=== PATIENT | male | born 1985 | race Caucasian/White ===

== ENCOUNTER 2021-04-11 12:15 | Inpatient (IN) | payer MEDICAID, SELFPAY ==
--- NOTE | ~2021-04-11 | CT_ITS ---
EXAMINATION: CT ABDOMEN AND PELVIS WITH CONTRAST CLINICAL INFORMATION: Abdominal discomfort. COMPARISON: None TECHNIQUE: Multidetector volumetric images were obtained from the superior aspect of the liver through the pubic symphysis following administration 85 mL of Omnipaque 350 intravenous contrast. Sagittal and coronal reformatted images were obtained on the technologist's workstation. Oral contrast: No This CT examination was performed using dose optimization techniques as appropriate, variously including the following: *Automated exposure control *Adjustment of mA and/or kV according to patient size (this includes techniques or standardized protocols for targeted exams where dose is matched to indication/reason for exam; i.e. extremities or head) *Use of iterative reconstruction technique DLP: 703 mGy-cm FINDINGS: LUNG BASES: Mild subsegmental atelectasis. No focal consolidation or pleural effusion. LIVER, GALLBLADDER, AND BILIARY TREE: The liver is normal in size, shape, and attenuation. No focal hepatic lesion or biliary ductal dilatation is present. The gallbladder is distended with a few stones within the neck. There is gallbladder wall thickening and pericholecystic fat stranding. PANCREAS: Unremarkable. SPLEEN: Unremarkable. ADRENAL GLANDS: Unremarkable. KIDNEYS AND URETERS: The kidneys are normal in size, shape, and attenuation. No hydronephrosis, hydroureter, or calculi seen. No perinephric stranding. BLADDER: Underdistended limiting its evaluation. No perivesical fat stranding. GASTROINTESTINAL TRACT: The stomach and the small bowel are nondilated. There is diffuse mucosal fatty hypertrophy throughout the colon and distal ileum, including terminal ileum of uncertain etiology. No evidence of active inflammatory bowel changes. No bowel obstruction. ABDOMINAL WALL: Small fat-containing umbilical hernia. Small bilateral fat-containing inguinal hernias. LYMPH NODES: No lymphadenopathy by size criteria. VASCULAR: Unremarkable. PELVIC VISCERA: Unremarkable. OSSEOUS STRUCTURES: No acute or suspicious osseous abnormalities. S-shaped scoliotic curvature of the thoracolumbar spine. CT/CT abdomen pelvis w con IMPRESSION: Cholelithiasis with gallbladder wall thickening and pericholecystic fat stranding most consistent with acute cholecystitis in the appropriate clinical setting. Submucosal fatty hypertrophy of the colon, distal ileum and terminal ileum, raising the possibility of a chronic inflammatory bowel disease without associated wall thickening or fat stranding to suspect an acute process. No bowel obstruction. Normal appendix.
[2021-04-11 12:50] VITALS: BP 156/96; PULSE 65; RESP 20; TEMP 36.1; O2SAT 100; BMI 34.3
[2021-04-11 15:51] LABS: Basophils Percent Auto 0.2 % (0-2); Hematocrit 43.7 % (42.0-52.0); Hemoglobin 15.2 g/dl (14.0-18.0); Imm Gran Abs Auto 0.09 X10*3/uL (0.00-0.03); Imm Gran Pct Auto 0.5 % (0.0-0.4); Lymphocytes Absolute Auto 0.7 X10*3/uL (1.2-4.9); Lymphocytes Percent Auto 3.7 % (20-40); MANUAL DIFF FLAG SCAN; Mean Corpuscular HGB Conc 34.8 g/dl (31.0-36.0); Mean Corpuscular Volume 86.2 fL (80.0-98.0); Mean Platelet Volume 9.8 fL (9.4-12.4); Monocytes Absolute Auto 0.5 X10*3/uL (0.1-1.2); Monocytes Percent Auto 2.4 % (2-11); Neutrophils Absolute Auto 18.3 x10*3/uL (2.0-8.3); Neutrophils Percent Auto 93.2 % (45-73); Platelet Count 266 X10*3/uL (160-400); Red Blood Count 5.07 X10*6/uL (4.60-5.80); Red Cell Distribution Width 12.5 % (11.0-16.0); SCAN SMEAR FLAG 1; White Blood Count 19.6 X10*3/uL (4.8-10.8)
[2021-04-11 16:14] LABS: Alanine Aminotransferase 24 U/L (0-40); Albumin Level 4.8 g/dL (3.5-5.0); Alkaline Phosphatase 66 U/L (39-117); Anion Gap 15 (12-20); Aspartate Amino Transferase 13 U/L (5-37); Bilirubin Total 0.5 mg/dL (0.0-1.0); Blood Urea Nitrogen 12 mg/dL (9-16); Calcium 9.5 mg/dL (8.4-10.2); Carbon Dioxide 24 mmol/L (22-29); Chloride 104 mmol/L (96-108); Creatinine Clr Calc Pharmacy 116.2; Estimated Glomerular Filt Rate > 60; Glucose Random 134 mg/dL (60-115); Potassium 3.8 mmol/L (3.3-5.1); Sodium 139 mmol/L (135-145); Total Protein 7.7 g/dL (6.5-8.0)
--- NOTE | 2021-04-11 16:17 | ED.GENADULT ---
HPI - General Adult General Chief complaint: Abdominal Pain Stated complaint: RUQ PAIN FROM URGENT CARE Time Seen by Provider: 04/11/21 16:17 Related Data Home Medications Medication Instructions Recorded Confirmed No Known Home Meds 04/11/21 04/11/21 Allergies Allergy/AdvReac Type Severity Reaction Status Date / Time No Known Allergies Allergy Verified 04/11/21 12:55 Review of Systems Review of Systems: Constitutional : No Weight loss, No Fever, No Chills, No Night Sweats, No Fatigue, No Malaise ENT/Mouth : No Hearing loss, No Ear Pain, No Nasal Congestion, No Sinus Pain, No Hoarseness, No sore throat, No Rhinorrhea, No Swallowing Difficulty Eyes: No Eye Pain, No Swelling, No Redness, No Foreign Body, No Discharge, No Vision Changes Cardiovascular : No Chest Pain, No SOB, No Dyspnea on Exertion, No Orthopnea, No Edema, No Palpitations Respiratory : No Cough, No Sputum, No Wheezing, No Smoke Exposure, No Dyspnea Gastrointestinal : No Nausea, Vomiting, No Diarrhea, No Constipation, epigastric abdominal Pain, No Hematochezia, No Melena Genitourinary : no irregular bleeding, No Dysuria, No Urinary Frequency, No Hematuria, No Urinary Incontinence, No Urgency, No Flank Pain, No Urinary Flow Changes, No Hesitancy Musculoskeletal : No joint pain, No Myalgias, No Joint Swelling Skin : No Skin Lesions, No rash Neuro : No Weakness, No Numbness, No Paresthesias, No Loss of Consciousness, No Dizziness, No Headache Psych : No Anxiety/Panic, No Depression, No SI/HI/AH/VH, No Social Issues, Yes all other systems are reviewed and are negative [facility] Past Medical History Medical History (Updated 04/11/21 @ 19:40 by Saida Sargent [facility]) Asthma Social History Social History Advance Directives: No Advance Directives Information Provided: No Physical Exam Vital Signs: Vital Signs: Last Vital Signs Temp 98.7 F 04/11/21 20:29 Pulse 61 04/11/21 20:29 Resp 14 04/11/21 20:29 BP 130/80 04/11/21 20:29 Pulse Ox 99 04/11/21 20:29 Body Mass Index 34.3 Const: General: healthy appearing, no acute distress and well developed Nutritional Appearance: well nourished Orientation/consciousness: patient oriented x3 HENMT: Head: Yes normal to inspection, Yes normocephalic and Yes atraumatic Face and sinus: Yes normal facial exam Mouth: Normal oral and palatal mucosa present Throat: Yes posterior oropharynx normal, Yes tonsils normal and Yes uvula midline Eyes: General: appearance normal, both eyes and all related structures Neck: Neck: Yes normal visual inspection, Yes full ROM and Yes trachea midline Thyroid: Thyroid normal Resp: Effort & Inspection: normal respiratory effort, able to speak in complete sentences, no tracheal deviation and symmetric chest movement Auscultation: clear to auscultation bilaterally Cardio: Jugular venous distension: no JVD Rate: regular rate Rhythm: regular rhythm Heart sounds: S1 normal heart sound present, S2 normal heart sound present, no gallops and no murmurs GI: Inspection: Yes normal to inspection, Yes distended and Yes obesity Palpation (GI): Soft to palpation, not firm, nontender and No hepatosplenomegaly present Auscultation: normal bowel sounds : General: Yes no CVA tenderness Back/Spine/Pelvis: Back: no CVA tenderness Skin: General skin exam: elasticity normal, turgor normal and dry skin Neuro: General: patient oriented x3 Psych: Appearance: grossly normal Mental Status: mental status grossly normal Speech and movement: Normal speech and movement present Affect: normal affect Attitude: cooperative Thought process: Normal thought process present Thought content: Normal thought content present Insight: Good insight present (Psych) Judgement: Good judgement present (Psych) Course Course Course Narrative: 36-year-old male with no particular past medical history is here today for vomiting and mid to upper abdominal area discomfort. Reports that this started 2 days ago. Patient reports that he vomited right after he ate. Patient denies eating any different food. Denies traveling, denies any ill contacts. Patient reports that his diet usually consists of fast food. Patient reports that he does like to eat hamburgers and [place] fries. Denies any family history of gallbladder disease. Will order CBC, CMP, lipase, abdominal CT scan. Will medicate him with Protonix, Maalox, and lidocaine. Reevaluation(s) Reevaluation #1: Patient reports that he is feeling nauseous will medicate him with Zofran. WBCs are 19.9. No shift. Reevaluation #2: Patient continues to have mid to upper abdominal discomfort. Abdominal CT was read by radiologist of acute cholecystitis. Will admit patient to surgery will let GI specialty know that patient has colonic wall thickening suggestive of IBD disease. Patient has no symptoms of diarrhea or lower abdominal pain. Reevaluation #3: General surgery in to admit patient. Patient will be NPO and medicated with morphine for pain. Currently his pain is controlled Medical Decision Making Lab Data Result diagrams: 04/11/21 15:46 04/11/21 15:46 Labs: Lab Results 04/11/21 04/11/21 04/11/21 Range/Units 15:46 15:46 17:03 WBC 19.6 H (4.8-10.8) X10*3/uL RBC 5.07 (4.60-5.80) X10*6/uL Hgb 15.2 (14.0-18.0) g/dl Hct 43.7 (42.0-52.0) % MCV 86.2 (80.0-98.0) fL MCH 30.0 (27.0-33.0) pg MCHC 34.8 (31.0-36.0) g/dl RDW 12.5 (11.0-16.0) % Plt Count 266 (160-400) X10*3/uL MPV 9.8 (9.4-12.4) fL Immature Gran % (Auto) 0.5 H (0.0-0.4) % Neut % (Auto) 93.2 H (45-73) % Lymph % (Auto) 3.7 L (20-40) % [place] % (Auto) 2.4 (2-11) % Eos % (Auto) 0.0 (0-4) % Baso % (Auto) 0.2 (0-2) % Lymph # (Auto) 0.7 L (1.2-4.9) X10*3/uL [place] # (Auto) 0.5 (0.1-1.2) X10*3/uL Eos # (Auto) 0.0 (0.0-0.4) X10*3/uL Baso # (Auto) 0.0 (0.0-0.2) X10*3/uL Abs Immat Gran (auto) 0.09 H (0.00-0.03) X10*3/uL Absolute Neuts (auto) 18.3 H (2.0-8.3) x10*3/uL Absolute Nucleated RBC 0.000 (0.0-0.012) X10*3/uL Nucleated RBC % (auto) 0.0 (0.0-0.2) /100WBC Smear Tech's Comments VERIFIED Sodium 139 (135-145) mmol/L Potassium 3.8 (3.3-5.1) mmol/L Chloride 104 (96-108) mmol/L Carbon Dioxide 24 (22-29) mmol/L Anion Gap 15 (12-20) BUN 12 (9-16) mg/dL Creatinine 0.87 (0.5-1.4) mg/dL Estim Creat Clear Calc 116.2 Estimated GFR > 60 Random Glucose 134 H (60-115) mg/dL Calcium 9.5 (8.4-10.2) mg/dL Total Bilirubin 0.5 (0.0-1.0) mg/dL AST 13 (5-37) U/L ALT 24 (0-40) U/L Alkaline Phosphatase 66 (39-117) U/L Total Protein 7.7 (6.5-8.0) g/dL Albumin 4.8 (3.5-5.0) g/dL Lipase 14 (8-78) U/L Urine Color YELLOW Urine Appearance CLEAR Urine pH 7.0 (5.0-8.0) Ur Specific [place] 1.020 (1.005-1.025) Urine Protein 1+ H (NEG-TRACE) MG/DL Urine Glucose (UA) NEG (NEG) MG/DL Urine Ketones >=80 (NEG) MG/DL Urine Blood NEG (NEG) Urine Nitrite NEG (NEG) Ur Leukocyte Esterase NEG (NEG) Urine RBC 0-2 (0) /HPF Urine WBC 0-2 (0-4) /HPF Ur Squamous Epith Cells TRACE /LPF Amorphous Sediment TRACE /LPF Urine Bacteria NONE /LPF Urine Mucus 3+ /LPF Imaging Data CT scan - abdomen: Attestation: I personally reviewed and interpreted this imaging study as follows: Radiologist's impression: IMPRESSION: Cholelithiasis with gallbladder wall thickening and pericholecystic fat stranding most consistent with acute cholecystitis in the appropriate clinical setting. ? Submucosal fatty hypertrophy of the colon, distal ileum and terminal ileum, raising the possibility of a chronic inflammatory bowel disease without associated wall thickening or fat stranding to suspect an acute process. ? Discharge Plan Discharge Clinical Impression: Acute cholecystitis Patient Disposition: Admitted As Inpatient
[2021-04-11 16:23] LABS: SLIDE REVIEW VERIFIED
[2021-04-11] MEDS: 0.9 % Sodium Chloride 1,000 ML 999 ML IV (16:58)
[2021-04-11] MEDS: Magnesium Hydrox/Alum Hydrox 30 ML ORAL.SUSP PO (16:59)
[2021-04-11] MEDS: Pantoprazole Sodium 40 MG/10 ML VIAL IVPUSH (16:59)
[2021-04-11] MEDS: Lidocaine HCl Viscous 2 % 15 ML SOLUTION PO (17:00)
[2021-04-11] MEDS: PHENobarb/Hyoscy/Atropine/Scop 10 ML ELIXIR 5 ML PO (17:01)
[2021-04-11 17:07] LABS: Lipase 14 U/L (8-78)
[2021-04-11 17:10] LABS: Appearance Urine CLEAR; Color Urine YELLOW; Glucose Urine UA NEG (NEG); Leukocyte Esterase Urine NEG (NEG); Nitrite Urine NEG (NEG); UACC Culture Trigger NO; Urine Blood NEG (NEG); Urine Ketones >=80 MG/DL (NEG); Urine Protein 1+ MG/DL (NEG-TRACE)
[2021-04-11 17:22] LABS: Amorphous Sediment Urine TRACE /LPF; Mucus Urine 3+ /LPF; RBC Urine 0-2 /HPF (0); Squamous Epithelial Cell Urine TRACE /LPF; WBC Urine 0-2 /HPF (0-4)
[2021-04-11] MEDS: iohexoL 350 MG/ML 100 ML INFUS..BTL IV (17:24)
[2021-04-11] MEDS: ondansetron HCL 4 MG/2 ML VIAL IVPUSH (18:10)
--- NOTE | 2021-04-11 20:12 | PM.HPGS ---
History of Present Illness History of Present Illness Date of Service: 04/15/21 Chief complaint: cholecystitis Narrative: Norberto Shields is a 36 year old male who came into the emergency room tonight because of epigastric pain. He says that this started about 2 days ago although this did not appear to be severe. He said he had vomited yesterday which provided some relief. He says the pain had persisted all day today so he decided to come to the emergency room. He says that the pain was a 10/10 before came to the ER but after he had an episode of, this is now down to a 2/10. He denies previous similar episodes in the past. He states that the pain was consistently on the epigastric area. Currently, he feels much better even without getting any pain medication here in the ER. Review of Systems Constitutional: Constitutional: Denies chills and Denies fever(s) Cardiovascular: Cardiovascular: Denies chest pain, Denies dyspnea and Denies dyspnea on exertion Respiratory: Respiratory: Denies cough, Denies dyspnea and Denies dyspnea on exertion Gastrointestinal: Gastrointestinal: Denies hematochezia and Denies change in bowel habits Genitourinary: Genitourinary: Denies hematuria and Denies difficulty urinating Musculoskeletal: Musculoskeletal: Denies back pain and Denies limited range of motion Neurologic: Denies focal weakness and Denies convulsions Psychiatric: Psychiatric: Denies depression and Denies mood swings PMFSH Past Medical History Medical History (Updated 04/11/21 @ 19:40 by Saida Sargent [facility]) Asthma Social History Social History Household Members: Family Housing: Apartment Do you presently have visiting nurse or other home services: No Patient Tobacco Use Status: Never used Tobacco service: No Current occupational status: employed Meds Allergies Allergy/AdvReac Type Severity Reaction Status Date / Time No Known Allergies Allergy Verified 04/11/21 12:55 Active Medications: Current Medications Pharmacy Consult (Consult Rx Perform Med Rec) 1 each MISCELLANE ONCE PRN PRN Reason: Consult order Physical Exam Vital Signs: Vital Signs: Last Vital Signs Temp 97 F 04/11/21 12:50 Pulse 65 04/11/21 12:50 Resp 20 04/11/21 12:50 BP 156/96 H 04/11/21 12:50 Pulse Ox 100 04/11/21 12:50 Body Mass Index 34.3 Const: General: comfortable and no acute distress Orientation/consciousness: patient oriented x3 Neck: Neck: Yes no lymphadenopathy Resp: Auscultation: clear to auscultation bilaterally Cardio: Rhythm: regular rhythm GI: Other: Minimal tenderness on deep palpation on the epigastric area, no Blood sign, no guarding rebound Palpation (GI): Soft to palpation, nontender and no guarding Neuro: General: patient oriented x3 Results Results Labs: Short CBC 04/11/21 Range/Units 15:46 WBC 19.6 H (4.8-10.8) X10*3/uL Hgb 15.2 (14.0-18.0) g/dl Hct 43.7 (42.0-52.0) % Plt Count 266 (160-400) X10*3/uL BMP 04/11/21 15:46 Sodium 139 Potassium 3.8 Chloride 104 Carbon Dioxide 24 BUN 12 Creatinine 0.87 Calcium 9.5 Liver Function 04/11/21 Range/Units 15:46 Total Bilirubin 0.5 (0.0-1.0) mg/dL AST 13 (5-37) U/L ALT 24 (0-40) U/L Alkaline Phosphatase 66 (39-117) U/L Albumin 4.8 (3.5-5.0) g/dL Urine 04/11/21 Range/Units 17:03 Urine Color YELLOW Urine Appearance CLEAR Urine pH 7.0 (5.0-8.0) Ur Specific [place] 1.020 (1.005-1.025) Urine Protein 1+ H (NEG-TRACE) MG/DL Urine Glucose (UA) NEG (NEG) MG/DL Assessment and Plan (1) Acute cholecystitis: Status: Acute He came in with a 2 day history of epigastric pain. Currently, he feels much better after an episode of vomiting. He says his pain is a 2/10. He has not gotten any pain medications in the ER. I have reviewed his CAT scan. This does not actually appear to have significant inflammatory changes to me. He does have gallstones and the gallbladder appears mildly distended. He does not have Blood's sign and he does not seem to have significant tenderness on deep palpation on the right upper quadrant at this time. I did explain to him the option of cholecystectomy. I had a long discussion with him about the technique of laparoscopic cholecystectomy and possible open cholecystectomy. I reviewed the risks including but not limited to bleeding, infections, injury to the bowel and the liver as well as the bile ducts, conversion to open cholecystectomy, as well as the benefits and alternatives. The alternative is to do non operative treatment with IV antibiotics only. He says he feels much better now and is uncertain as to whether he wants to proceed with surgery. I will admit him and continue IV antibiotics and we will rediscuss with him the option of proceeding with cholecystectomy in the morning. He states he understands the plan and is agreeable. Again he states that he is currently comfortable and says he does not need pain medications at this time. Quality Stroke Does the patient have a stroke diagnosis?: No VTE Prior VTE?: No VTE Risk Level:: Medical - low VTE Device Contraindication: Treatment Not Indicated VTE Drug Contraindication: Treatment Not Indicated Procedures Date of Service Date of Service: 04/11/21
[2021-04-11] MEDS: Morphine Sulfate 4 MG/ML CARTRIDGE IVPUSH (20:16)
[2021-04-11] MEDS: Piperacillin Sodium/Tazobactam 3.375 GM in 0.9 % Sodium Chloride 50 ML IV (20:17)
[2021-04-11 20:29] VITALS: BP 130/80; PULSE 61; RESP 14; TEMP 37.1; O2SAT 99
--- NOTE | 2021-04-11 20:32 | PHA.MEDREC ---
Pharmacy Consult ? Medication Reconciliation Pharmacy has completed the medication reconciliation.
[2021-04-11] MEDS: 0.9 % Sodium Chloride 1,000 ML 100 ML IVCONT (21:14)
[2021-04-11 21:50] VITALS: BP 142/76; PULSE 56; RESP 16; O2SAT 99
[2021-04-12] VITALS (15 sets, daily range): BP systolic 125–159; BP diastolic 71–95; PULSE 61–86; RESP 16–18; TEMP 36.4–37.3; O2SAT 94–100
--- NOTE | 2021-04-12 05:56 | PC.NURSE ---
Pt alert and oriented x4, calm and cooperative. Pt denies pain, denies N/V/D. Pt OOB ambulating to bathroom without issues, independent on feet and noted to be steady. Pt voided multiple times throughout shift leader. IV intact infusing IV fluids and tolerating well. Remains NPO. Vitals stable. Pt aware of being admitted, transported to floor by Tech. Report given to Tyler.
[2021-04-12] MEDS: 0.9 % Sodium Chloride 1,000 ML 100 ML IVCONT ×2 (06:29→17:39)
[2021-04-12] MEDS: Omeprazole 20 MG CAPSULE.DR PO ×2 (06:29→16:50)
[2021-04-12 06:59] LABS: COVID-19 Test Negative (Negative)
[2021-04-12 07:44] LABS: Hematocrit 41.8 % (42.0-52.0); Hemoglobin 14.1 g/dl (14.0-18.0); Mean Corpuscular HGB Conc 33.7 g/dl (31.0-36.0); Mean Corpuscular Hemoglobin 29.4 pg (27.0-33.0); Mean Corpuscular Volume 87.1 fL (80.0-98.0); Platelet Count 249 X10*3/uL (160-400); Red Cell Distribution Width 12.8 % (11.0-16.0); White Blood Count 14.7 X10*3/uL (4.8-10.8)
[2021-04-12 07:54] LABS: Alanine Aminotransferase 18 U/L (0-40); Albumin Level 4.1 g/dL (3.5-5.0); Alkaline Phosphatase 58 U/L (39-117); Aspartate Amino Transferase 10 U/L (5-37); Bilirubin Direct 0.4 mg/dL (0.0-0.5); Total Protein 6.4 g/dL (6.5-8.0)
--- NOTE | 2021-04-12 12:09 | PM.EVENT ---
Event Note Date of Service: 04/12/21 Event Note: CT scan with Dr. Celis - subtle changes suggestive of early/mild acute cholecystitis Patient feels much better but says that he does not want to have another episode He says he would like to proceed with laparoscopic cholecystectomy He understands the technique ofthe procedure as well as the risks, benefits, and alternatives His mother was involved with the discussion
--- NOTE | 2021-04-12 13:23 | HO.ANESPROP2 ---
HPI - Anesthesia Eval Consult details Narrative: Acute Cholecyctitis PMFSH Active Problems Active Problems: All Active Problems (Updated 04/11/21 @ 19:40 by MARIANNE Mendoza) Acute cholecystitis (Acute) Past Medical History Medical History (Updated 04/11/21 @ 19:40 by MARIANNE Mendoza) Asthma Family History Family history of problems with anesthesia: No Surgical History History of Problems with Anesthesia: No Social History Social History Household Members: Family Housing: Apartment Do you presently have visiting nurse or other home services: No Patient Tobacco Use Status: Never used Tobacco Use of substances other than those prescribed or required for medical reasons: No Have you been hit, kicked, punched, or otherwise hurt by someone within the past year? If so, by whom?: No Do you feel safe in your current relationship?: No Is there a partner from a previous relationship who is making you feel unsafe now?: No Are you made to feel afraid or neglected: No Advance Directives: No Advance Directives Information Provided: No Do you have thoughts of harming others: None Do you have a plan to hurt others: No Plan Meds Allergies Allergy/AdvReac Type Severity Reaction Status Date / Time No Known Allergies Allergy Verified 04/11/21 12:55 Active Medications: Current Medications Sodium Chloride (Ns) 1,000 mls @ 100 mls/hr IVCONT .Q10H [facility] Last Admin: 04/12/21 06:29 Dose: 100 mls/hr Documented by: Morphine Sulfate (Morphine Sulfate 4 Mg/Ml Cartridge) 3 mg IVPUSH Q3H PRN; Protocol PRN Reason: pain, severe Omeprazole (Omeprazole 20 Mg Capsule.Dr) 20 mg PO BID@0630,1630 [facility] Last Admin: 04/12/21 06:29 Dose: 20 mg Documented by: Ondansetron HCl (Ondansetron Hcl 4 Mg/2 Ml Vial) 4 mg IVPUSH Q8H PRN PRN Reason: Nausea and Vomiting Oxycodone HCl (Oxycodone Hcl Immed Release 5 Mg Tablet) 10 mg PO Q4H PRN PRN Reason: pain, moderate Pharmacy Consult (Consult Rx Perform Med Rec) 1 each MISCELLANE ONCE PRN PRN Reason: Consult order Sodium Chloride (0.9 % Sodium Chloride Flush 3 Ml Syringe) 3 ml IVFLUSH QSHIFT [facility] Last Admin: 04/12/21 07:50 Dose: Not Given Documented by: Home Medications Medication Instructions Recorded Confirmed Last Taken Type No Known Home Meds 04/11/21 04/11/21 Unknown History Exam Exam Date and Time: April 12, 2021 1323 Height,Weight and Vital Signs: Height 5 ft 3 in Weight 87.997 kg Last Vital Signs Temp 98 F 04/12/21 12:41 Pulse 76 04/12/21 12:41 Resp 18 04/12/21 12:41 BP 125/82 04/12/21 12:41 Pulse Ox 97 04/12/21 12:41 Pertinent Lab Results Pertinent Lab Results: Laboratory Tests 04/11/21 04/11/21 04/11/21 15:46 15:46 17:03 WBC 19.6 H RBC 5.07 Hgb 15.2 Hct 43.7 MCV 86.2 MCH 30.0 MCHC 34.8 RDW 12.5 Plt Count 266 MPV 9.8 Immature Gran % (Auto) 0.5 H Neut % (Auto) 93.2 H Lymph % (Auto) 3.7 L [place] % (Auto) 2.4 Eos % (Auto) 0.0 Baso % (Auto) 0.2 Lymph # (Auto) 0.7 L [place] # (Auto) 0.5 Eos # (Auto) 0.0 Baso # (Auto) 0.0 Abs Immat Gran (auto) 0.09 H Absolute Neuts (auto) 18.3 H Absolute Nucleated RBC 0.000 Nucleated RBC % (auto) 0.0 Smear Tech's Comments VERIFIED Sodium 139 Potassium 3.8 Chloride 104 Carbon Dioxide 24 Anion Gap 15 BUN 12 Creatinine 0.87 Estim Creat Clear Calc 116.2 Estimated GFR > 60 Random Glucose 134 H Calcium 9.5 Total Bilirubin 0.5 Direct Bilirubin AST 13 ALT 24 Alkaline Phosphatase 66 Total Protein 7.7 Albumin 4.8 Lipase 14 Urine Color YELLOW Urine Appearance CLEAR Urine pH 7.0 Ur Specific [place] 1.020 Urine Protein 1+ H Urine Glucose (UA) NEG Urine Ketones >=80 Urine Blood NEG Urine Nitrite NEG Ur Leukocyte Esterase NEG Urine RBC 0-2 Urine WBC 0-2 Ur Squamous Epith Cells TRACE Amorphous Sediment TRACE Urine Bacteria NONE Urine Mucus 3+ COVID-19 (MAYTE) COVID-19 Clin Com 04/12/21 04/12/21 04/12/21 06:30 07:30 07:30 WBC 14.7 H RBC 4.80 Hgb 14.1 Hct 41.8 L MCV 87.1 MCH 29.4 MCHC 33.7 RDW 12.8 Plt Count 249 MPV 10.0 Immature Gran % (Auto) Neut % (Auto) Lymph % (Auto) [place] % (Auto) Eos % (Auto) Baso % (Auto) Lymph # (Auto) [place] # (Auto) Eos # (Auto) Baso # (Auto) Abs Immat Gran (auto) Absolute Neuts (auto) Absolute Nucleated RBC 0.000 Nucleated RBC % (auto) 0.0 Smear Tech's Comments Sodium Potassium Chloride Carbon Dioxide Anion Gap BUN Creatinine Estim Creat Clear Calc Estimated GFR Random Glucose Calcium Total Bilirubin 1.0 Direct Bilirubin 0.4 AST 10 ALT 18 Alkaline Phosphatase 58 Total Protein 6.4 L Albumin 4.1 Lipase Urine Color Urine Appearance Urine pH Ur Specific [place] Urine Protein Urine Glucose (UA) Urine Ketones Urine Blood Urine Nitrite Ur Leukocyte Esterase Urine RBC Urine WBC Ur Squamous Epith Cells Amorphous Sediment Urine Bacteria Urine Mucus COVID-19 (MAYTE) Negative COVID-19 Clin Com See Note Airway Mallampati Class: II TM Dist: >3cm Neck ROM: Full Loose/Missing/Broken Teeth: Yes (missing many upper and lower) Heart: [id number] Lungs: cta b/l Assessment and Plan Assessment Anesthesia Assessment: Anesthesia Plan Discussed and Chart Reviewed Final Anesthetic Review Family History of Problems with Anesthesia: No History of Problems with Anesthesia: No NPO: Yes ASA Class: II Final Preanesthetic Review: No Changes in Pt Med Stat, Meds/Allgs Chart Reviewed, Consent Obtained/Reviewed and Anes Risks/Benef Reviewed Patient Risk: Intermediate Procedure Risk: Intermediate Anesthetic Plan Anesthetic Plan: MAC: and Agree w/ Assess. and Plan Disposition: Standard PACU
--- NOTE | 2021-04-12 14:51 | P.OP_ITS ---
Operative Note Operative Note Date of Service: 04/12/21 Narrative: Preop diagnosis: Acute calculous cholecystitis Postop diagnosis: Acute calculous cholecystitis Procedure: Laparoscopic cholecystectomy Surgeon: Misael Barriga MD recruitment and outreach assistant: ANDRA Cortes The patient is a 36-year-old male who was admitted last night because of epigastric pain and right upper quadrant pain. CT scan was suggestive of acute cholecystitis. Furthermore his white count was 19. This had dropped to 14 this morning. His LFTs were within normal. He did feel much better but after a long discussion with him, he wanted to proceed with cholecystectomy. He understood the technique of laparoscopic cholecystectomy and possible open. He was aware of the risks, benefits, and alternatives . He was brought to the operating room placed supine on the table under general anesthesia via endotracheal tube. The abdomen is prepped and draped in the usual sterile fashion. A surgical time-out was done. The patient received Cefotan 2 g IV preoperatively I made a short supraumbilical incision using blade 15. This was carried down through the full-thickness of the skin subcutaneous fat down to the fascia. The fascia was incised. The peritoneum was entered. A Alba port was introduced through this incision and through this, a 10 mm laparoscope was placed. With laparoscopic visualization, I proceeded to insert a 5/12 mm port in the epigastric area below the subcostal margin through a small stab incision. 5 mm ports were also introduced through small incisions below the subcostal margin along the anterior axillary line and the midclavicular line. Graspers were placed through these working ports. The patient was placed in head-up [id number] position. The gallbladder was seen and this was noted to be markedly distended and erythematous with a lot of edema. We had to decompress this using an aspirating needle through 1 of the ports. We were then able to apply a grasper at the fundus and this was used to retract the gallbladder cephalad. Another grasper was placed on the pouch of the gallbladder and this was used to retract the gallbladder laterally. At this point therefore the gallbladder was being retracted in a cephalad and lateral fashion to put the area of the cystic duct on stretch. There was in a lot of the edema as well throughout the neck and were adherent indurated fatty areolar tissue around the neck. We had to carefully dissect this using the [place] dissector well as the tip of the suction catheter carefully clear up the neck until was able to visualize what appeared to be the cystic duct. We continued therefore to the cystic duct with the [place] dissector until were able to confirm its confluence with the neck of the gallbladder. There was still a lot of fibrotic fatty areolar tissue in the triangle but we were able to achieve a critical view to make sure that there were no other structures in this area except for what appeared to be the artery buried within the fatty areolar tissue. With confirmation of the confluence of the neck of the gallbladder to the cystic duct achieved, I proceeded to apply clips, with 2 clips being applied distally. The cystic duct was transected between clips with Endo scissors. Continued to gently dissect through the rest of the fatty oral tissue until was able to identify what appeared to be the cystic artery. Again clips were applied and this was transected between clips using Endo scissors. We had to add another as there was still some oozing from the stump. Eventually, were able to achieve good hemostasis. I continued to bluntly dissect the rest of the indurated tiss ue in the hilum until was able to visualize the interface of the gallbladder wall with the liver bed. I gently incised the peritoneum of the gallbladder using the electrocautery spatula. I then proceeded to gently separate the gallbladder wall from the liver bed with a combination of blunt dissection with the tip of the spatula with electrocautery using the spatula itself. We continued to dissect the gallbladder off of the liver bed with this method of dissection carefully all with the fundus until the entire gallbladder was completely from the liver bed. It is noted that the gallbladder was markedly edematous and erythematous throughout the dissection. We were able to retrieve the gallbladder through an endobag through the umbilical incision. I reinserted all ports and re-insufflated. I examined her of dissection. There was note of good hemostasis. Once we had a little bit of spillage from a tear in the gallbladder wall, we proceeded to copiously irrigate the area and suction out the irrigant fluid. I observed all 4 quadrants and there was no other pathology seen. I then continue to observe the dissection and this appeared to be hemostatic. I irrigated again and suctioned out the irrigant fluid. Once hemostasis was ensured, I proceeded to then desufflate the port sites. I removed all ports under vision with the laparoscope, with the umbilical port valerie ng removed last. The fascia of the umbilical incision was closed with [id number] Dexon 0 stitch. Skin closure was achieved on all incisions using Dexon 4-0 subcuticular running sutures. Steri-Strips and dressings were applied. All incisions were infiltrated with Marcaine 0.5% for postop analgesia. The procedure was then completed The patient tolerated the procedure well. There were no complications noted. Initial and final counts of sponges and instruments were correct. Estimated blood loss was about 30 cc The patient was extubated without difficulty in the operating room and transferred to the recovery room with stable vital signs.
--- NOTE | 2021-04-12 14:55 | P.BOP_ITS ---
Brief Operative Note Date of Service: 04/12/21 <Elena Cortes PA-C - Last Filed: 04/12/21 14:56> Pre-op diagnosis: ACUTE CHOLECYSTITIS <Elena Cortes PA-C - Last Filed: 04/12/21 14:56> Post-op diagnosis: same <Elena Cortes PA-C - Last Filed: 04/12/21 14:56> Procedure: laparoscopic cholecystectomy <Elena Cortes PA-C - Last Filed: 04/12/21 14:56> Implants: None <Elena Cortes PA-C - Last Filed: 04/12/21 14:56> Surgeon: CHONG VALENTE MD <Elena Cortes PA-C - Last Filed: 04/12/21 14:56> Anesthesia: GETA <Elena Cortes PA-C - Last Filed: 04/12/21 14:56> Was an Training Development Specialist used for this Procedure?: Yes <Elena Cortes PA-C - Last Filed: 04/12/21 14:56> No <Chong Valente MD - Last Filed: 04/12/21 15:03> Training Development Specialist: Elena Cortes <AMANDA Miranda Last Filed: 04/12/21 14:56> Estimated blood loss (mL): 20 <AMANDA Miranda Last Filed: 04/12/21 14:56> Pathology: other (gallbladder) <Elena Cortes PA-C - Last Filed: 04/12/21 14:56> Condition: stable <AMANDA Miranda Last Filed: 04/12/21 14:56> Disposition: PACU <AMANDA Miranda Last Filed: 04/12/21 14:56>
[2021-04-12] MEDS: HYDROmorphone HCl 0.5 MG/0.5 ML SYRINGE IVPUSH ×2 (15:12→15:17)
[2021-04-12] MEDS: oxyCODONE HCl Immed Release 5 MG TABLET 10 MG PO (15:22)
--- NOTE | 2021-04-12 15:54 | PM.EVENT ---
Event Note Date of Service: 04/12/21 Event Note: Seen postop Underwent laparoscopic cholecystectomy Noted to have acute cholecystitis with edematous gallbladder, with significant erythema Good pain control Stable vital signs Doing well postop Likely home tomorrow His mother was updated over the phone
--- NOTE | 2021-04-12 16:07 | MHC.CM.PN ---
CM ATTEMPTED TO SEE PT WHO WAS OFF THE UNIT. CM WILL REVISIT TOMORROW
[2021-04-12 20:44] LABS: Anion Gap 12 (12-20); Carbon Dioxide 25 mmol/L (22-29); Chloride 105 mmol/L (96-108); Creatinine Clr Calc Pharmacy 108.7; Estimated Glomerular Filt Rate > 60; Glucose Random 166 mg/dL (60-115); Potassium 3.8 mmol/L (3.3-5.1); Sodium 138 mmol/L (135-145)
[2021-04-12] MEDS: oxyCODONE HCl Immed Release 5 MG TABLET PO (20:52)
[2021-04-12 21:11] LABS: Blood Urea Nitrogen 6 mg/dL (9-16); Calcium 8.4 mg/dL (8.4-10.2)
[2021-04-13 04:27] VITALS: BP 122/71; PULSE 69; RESP 17; TEMP 36.8; O2SAT 98
[2021-04-13] MEDS: Omeprazole 20 MG CAPSULE.DR PO (06:24)
[2021-04-13] MEDS: 0.9 % Sodium Chloride 1,000 ML 100 ML IVCONT (06:26)
[2021-04-13 08:00] VITALS: BP 119/64; PULSE 76; RESP 18; TEMP 36.7; O2SAT 97
--- NOTE | 2021-04-13 08:26 | P.PNGS_ITS ---
Subjective Subjective Date of Service: 04/13/21 Interval history: Patient feels much improved with decreased upper abdominal pain. He does have some lower abdominal pain but has not moved his bowels since the surgery. He is passing flatus. He tolerated a regular diet last night and this morning and denies any nausea or vomiting. He feels ready for discharge to home. Physical Exam Vital Signs: Vital Signs: Last Vital Signs Temp 98.0 F 04/13/21 08:00 Pulse 76 04/13/21 08:00 Resp 18 04/13/21 08:00 BP 119/64 04/13/21 08:00 Pulse Ox 97 04/13/21 08:00 Body Mass Index 34.3 Const: General: cooperative, comfortable and no acute distress Nutritional Appearance: well nourished Orientation/consciousness: patient oriented x3 Limitations: no limitations Resp: Effort & Inspection: normal respiratory effort, no cough and no respiratory distress GI: Other: Incisions are clean, dry, and intact. There is some dry blood in the umbilical incision. Abdomen is soft and nondistended. Skin: Other: Warm, dry, no rash, normal color Neuro: General: patient oriented x3 Extrem: Other: No edema Objective Data Active Medications Acetaminophen (Acetaminophen 325 Mg Tablet) 650 mg PO Q6H PRN PRN Reason: Pain, Mild (Pain Scale 1-3) Sodium Chloride (Ns) 1,000 mls @ 100 mls/hr IVCONT .Q10H [facility] Last Admin: 04/13/21 06:26 Dose: 100 mls/hr Documented by: FELY Morphine Sulfate (Morphine Sulfate 4 Mg/Ml Cartridge) 3 mg IVPUSH Q3H PRN; Protocol PRN Reason: pain, severe Omeprazole (Omeprazole 20 Mg Capsule.) 20 mg PO BID@0630,1630 [facility] Last Admin: 04/13/21 06:24 Dose: 20 mg Documented by: FELY Ondansetron HCl (Ondansetron Hcl 4 Mg/2 Ml Vial) 4 mg IVPUSH Q8H PRN PRN Reason: Nausea and Vomiting Oxycodone HCl (Oxycodone Hcl Immed Release 5 Mg Tablet) 10 mg PO Q4H PRN PRN Reason: pain, moderate Oxycodone HCl (Oxycodone Hcl Immed Release 5 Mg Tablet) 5 mg PO Q4H PRN PRN Reason: Pain, Moderate (Pain Scale 4-6 Last Admin: 04/12/21 20:52 Dose: 5 mg Documented by: TABITHA Pharmacy Consult (Consult Rx Perform Med Rec) 1 each MISCELLANE ONCE PRN PRN Reason: Consult order Sodium Chloride (0.9 % Sodium Chloride Flush 3 Ml Syringe) 3 ml IVFLUSH QSHIFT [facility] Last Admin: 04/13/21 07:50 Dose: Not Given Documented by: DAMIAN Non-Admin Reason: IV Running Labs CBC & Chem 7: 04/12/21 07:30 04/12/21 20:07 Labs: Laboratory Results - last 24 hr 04/12/21 20:07 Anion Gap 12 Estim Creat Clear Calc 108.7 Estimated GFR > 60 Random Glucose 166 H Calcium 8.4 D Procedures Date of Service Date of Service: 04/13/21 Progress Note: A&P Assessment and plan (1) Acute cholecystitis: Status: Acute Assessment and Plan: 36-year-old male patient admitted with abdominal pain in the epigastrium right upper quadrant found to have acute cholecystitis. He is postop day 1 following laparoscopic cholecystectomy. He tolerated the procedure well and feels much improved this morning. He tolerated a regular diet without nausea or vomiting. Patient is ready for discharge to home. He will follow up with Dr. Barriga in approximately 2 weeks. Fall Risk Details Current Medications: Current Medications Acetaminophen (Acetaminophen 325 Mg Tablet) 650 mg PO Q6H PRN PRN Reason: Pain, Mild (Pain Scale 1-3) Sodium Chloride (Ns) 1,000 mls @ 100 mls/hr IVCONT .Q10H [facility] Last Admin: 04/13/21 06:26 Dose: 100 mls/hr Documented by: Morphine Sulfate (Morphine Sulfate 4 Mg/Ml Cartridge) 3 mg IVPUSH Q3H PRN; Protocol PRN Reason: pain, severe Omeprazole (Omeprazole 20 Mg Juno.) 20 mg PO BID@0630,1630 [facility] Last Admin: 04/13/21 06:24 Dose: 20 mg Documented by: Ondansetron HCl (Ondansetron Hcl 4 Mg/2 Ml Vial) 4 mg IVPUSH Q8H PRN PRN Reason: Nausea and Vomiting Oxycodone HCl (Oxycodone Hcl Immed Release 5 Mg Tablet) 10 mg PO Q4H PRN PRN Reason: pain, moderate Oxycodone HCl (Oxycodone Hcl Immed Release 5 Mg Tablet) 5 mg PO Q4H PRN PRN Reason: Pain, Moderate (Pain Scale 4-6 Last Admin: 04/12/21 20:52 Dose: 5 mg Documented by: Pharmacy Consult (Consult Rx Perform Med Rec) 1 each MISCELLANE ONCE PRN PRN Reason: Consult order Sodium Chloride (0.9 % Sodium Chloride Flush 3 Ml Syringe) [facility] Admin: 04/13/21 07:50 Dose: Not Given Documented by: Time Spent With Patient Time: Total time spent is greater than 50% in coordination of care (as documented) at patient's floor/unit and/or counseling patient: Time with patient: 15 - 24 minutes Quality Stroke Does the patient have a stroke diagnosis?: No VTE Prior VTE?: No VTE Risk Level:: Surgical - low VTE Device Contraindication: Treatment Not Indicated VTE Drug Contraindication: Treatment Not Indicated
--- NOTE | 2021-04-13 08:53 | MHC.CM.PN ---
EMR REVIEWED, PT ADMITTED S/P GUANAKO ARIANA, PT REPORTS HE'S DOING WELL AFTER PROCEDURE, FEELS READY FOR D/C, PT REPORTS HE LIVES W/HIS MOTHER, IS INDEPENDENT W/ALL CARE, NO DME AND NO HOME SERVICES, PT REPORTS HAVING JOSH CONLEY HIS PCP HOWEVER HASN'T SEEN HIM IN YRS, PT GIVEN [facility] W/PROVIDERS AND ENCOURAGED TO OBTAIN A NEW PCP, PT PROVIDED INFO ON HCP'S AND PT IS CURRENTLY DECLINING. D/C PLAN: HOME TODAY SELF-CARE, PT WILL CALL FRIEND FOR TRANSPORT.
[2021-04-13] MEDS: oxyCODONE HCl Immed Release 5 MG TABLET PO (10:10)
--- NOTE | 2021-04-13 14:50 | HO.POSTANES ---
Post Anesthesia Evaluation Post Anesthesia Evaluation Vital Signs: Vital Signs Temp Pulse Resp BP Pulse Ox 04/13/21 08:00 98.0 F 76 18 119/64 97 04/13/21 04:27 98.2 F 69 17 122/71 98 Anesthesia: General Endotracheal-GETA Mental Status: Awake Pain Control: Satisfactory Nausea/Vomiting: None Hydration: Adequate Anesthesia-Related Issues: No Anes. Related Issues
--- NOTE | 2021-04-16 11:03 | PM.DS ---
DS: Providers Provider Date of Service: 04/13/21 Date of admission: 04/11/21 20:18 Primary care physician: Unknown Physician Attending physician on admission: Misael Barriga DS: Diagnosis Discharge Diagnosis (1) Acute cholecystitis: Status: Acute DS: Summary Hospital Course Hospital Course: BRIEF HPI: Norberto Shields is a 36 year old male who came into the emergency room tonight because of epigastric pain.? He says that this started about 2 days ago although this did not appear to be severe.? He said he had vomited yesterday which provided some relief.? He says the pain had persisted all day today so he decided to come to the emergency room.? He says that the pain was a 10/10 before came to the ER but after he had an episode of, this is now down to a 2/10. He denies previous similar episodes in the past.? He states that the pain was consistently on the epigastric area.? Currently, he feels much better even without getting any pain medication here in the ER. HOSPITAL COURSE: He underwent uneventful laparoscopic cholecystectomy on April 12, 2021. He tolerated procedure well. He was started on clear liquids postoperatively. He has diet was advanced the following day. Continued to do well postop day 1. He had good pain control so was discharged on April 13, 2021. At the time of his discharge, he had good pain control, and had remained afebrile with stable vital signs. Time Spent with Patient Time attestation: Total time spent providing and/or coordinating discharge services: Discharge coordination time: Greater than 30 minutes Quality: Stroke Does the patient have a stroke diagnosis?: No Physical Exam Vital Signs: Vital Signs: Last Vital Signs Temp 98.0 F 04/13/21 08:00 Pulse 76 04/13/21 08:00 Resp 18 04/13/21 08:00 BP 119/64 04/13/21 08:00 Pulse Ox 97 04/13/21 08:00 Body Mass Index 34.3 DS: Data Data Completed and Pending Pending studies at discharge: 04/12/21 14:32 Surgical [PTH] Routine Gallbladder, cholecystectomy:? Acute and chronic cholecystitis with ulceration and necrosis; cholelithiasis. Discharge Plan Discharge Patient Disposition: Home, Self-Care Discharge Diagnosis: Acute cholecystitis Referrals: Misael Barriga MD [Physician] - 2 Weeks Physician,Unknown J [Primary Care Provider] - 1 Week Discharge Medications: New docusate sodium [Colace] 100 mg capsule 100 mg PO BID PRN (Reason: constipation) Qty: 30 RF: 0 ibuprofen 600 mg tablet 600 mg PO TID PRN (Reason: pain (scale score 4-6)) Qty: 30 RF: 0 oxycodone-acetaminophen [Percocet] 5-325 mg tablet 1 tab PO Q4-6H PRN (Reason: pain, severe) Qty: 30 RF: 0 ibuprofen 600 mg tablet 600 mg PO Q6H PRN (Reason: pain) Qty: 30 RF: 0 Discharge Orders: Discharge Order (Routine); Ordered 04/13/21 Ordered By: Chas Arevalo Diet: low fat, low cholesterol Activity on Discharge: No heavy lifting Stand Alone Forms: Patient Portal Discharge page Activity Restrictions/Additional Instructions: If the incision area is tender, you may apply an ice pack for short intervals (No more than 20 minutes on, followed by at least 20 minutes off). Do not apply heat. Do not use creams, lotions, or topical antibiotics unless instructed to do so by your surgeon. These can cause infection or allergic reaction. Ok to shower 24 hours after your surgery. Remove bandaids in 2 days and replace. You have steri strips (small white cloth strips) covering your incision- these will fall off ~1 week. Follow up in office with Dr. Barriga in 2 weeks. ([phone]) No heavy lifting (>10-20lbs)! Call Your Doctor If: -Your temperature exceeds 101.5? F -You experience excessive pain or swelling -You have an unexpected reaction to medication -You have excessive bleeding -You experience continued vomiting/nausea -Your incision begins to separate -Your incision shows signs of infection such as increased redness, swelling, excessive pain, drainage (light blood or clear fluid is normal) or heat Care Plan Goals: Return to baseline health and gradual return to activity following recovery period. Health Concerns: acute cholecystitis s/p lap CCY Plan of Treatment: s/p lap cholecystectomy, discharge to home, f/u in office Assessment: Doing well post op Discharge Date/Time: 04/13/21 11:33
--- NOTE | 2021-04-16 14:20 | PM.DS ---
DS: Providers Provider Date of Service: 04/16/21 Date of admission: 04/11/21 20:18 Date of discharge: 04/13/21 Primary care physician: Unknown Physician Admitting clinician: Misael Barriga Attending physician on admission: Misael Barriga Attending physician on discharge: Misael Barriga Discharging clinician: Chas Arevalo DS: Diagnosis Discharge Diagnosis (1) Acute cholecystitis: Status: Acute DS: Summary Hospital Course Hospital Course: BRIEF HPI: Norberto Shields is a 36 year old male who came into the emergency room tonight because of epigastric pain.? He says that this started about 2 days ago although this did not appear to be severe.? He said he had vomited yesterday which provided some relief.? He says the pain had persisted all day today so he decided to come to the emergency room.? He says that the pain was a 10/10 before came to the ER but after he had an episode of, this is now down to a 2/10. He denies previous similar episodes in the past.? He states that the pain was consistently on the epigastric area.? Currently, he feels much better even without getting any pain medication here in the ER. HOSPITAL COURSE: He underwent uneventful laparoscopic cholecystectomy on April 12, 2021. He tolerated procedure well. He was started on clear liquids postoperatively. He has diet was advanced the following day. Continued to do well postop day 1. He had good pain control so was discharged on April 13, 2021. At the time of his discharge, he had good pain control, and had remained afebrile with stable vital signs. Time spent discussing smoking cessation with patient: 3 to 10 minutes Status at Discharge Functional status at discharge: independent ambulation Overall status at discharge: patient is progressing back to baseline Time Spent with Patient Time attestation: Total time spent providing and/or coordinating discharge services: Discharge coordination time: Less than 30 minutes Specific discharge activities: No lifting more than 20 lb Quality: Stroke Does the patient have a stroke diagnosis?: No Reason for No Anti-thrombotic at DC: Not indicated Reason for No Anticoagulant at DC: Not indicated Physical Exam Vital Signs: Vital Signs: Last Vital Signs Temp 98.0 F 04/13/21 08:00 Pulse 76 04/13/21 08:00 Resp 18 04/13/21 08:00 BP 119/64 04/13/21 08:00 Pulse Ox 97 04/13/21 08:00 Body Mass Index 34.3 Const: General: comfortable and no acute distress Eyes: Sclerae: sclerae normal Resp: Auscultation: clear to auscultation bilaterally Cardio: Rate: regular rate GI: Other: All incisions are well healing Palpation (GI): Soft to palpation, not firm, nontender and no guarding DS: Data Data Completed and Pending Completed studies during hospitalization [Text1]: Pending at discharge 04/12/21 14:32 Surgical [PTH] Routine Discharge Plan Discharge Patient Disposition: Home, Self-Care Discharge Diagnosis: Acute cholecystitis Referrals: Misael Barriga MD [Physician] - 2 Weeks Physician,Kg Abebe [Primary Care Provider] - 1 Week Discharge Medications: New docusate sodium [Colace] 100 mg capsule 100 mg PO BID PRN (Reason: constipation) Qty: 30 RF: 0 ibuprofen 600 mg tablet 600 mg PO TID PRN (Reason: pain (scale score 4-6)) Qty: 30 RF: 0 oxycodone-acetaminophen [Percocet] 5-325 mg tablet 1 tab PO Q4-6H PRN (Reason: pain, severe) Qty: 30 RF: 0 ibuprofen 600 mg tablet 600 mg PO Q6H PRN (Reason: pain) Qty: 30 RF: 0 Discharge Orders: Discharge Order (Routine); Ordered 04/13/21 Ordered By: Chas Arevalo Diet: low fat, low cholesterol Activity on Discharge: No heavy lifting Stand Alone Forms: Patient Portal Discharge page Activity Restrictions/Additional Instructions: If the incision area is tender, you may apply an ice pack for short intervals (No more than 20 minutes on, followed by at least 20 minutes off). Do not apply heat. Do not use creams, lotions, or topical antibiotics unless instructed to do so by your surgeon. These can cause infection or allergic reaction. Ok to shower 24 hours after your surgery. Remove bandaids in 2 days and replace. You have steri strips (small white cloth strips) covering your incision- these will fall off ~1 week. Follow up in office with Dr. Barriga in 2 weeks. ([phone]) No heavy lifting (>10-20lbs)! Call Your Doctor If: -Your temperature exceeds 101.5? F -You experience excessive pain or swelling -You have an unexpected reaction to medication -You have excessive bleeding -You experience continued vomiting/nausea -Your incision begins to separate -Your incision shows signs of infection such as increased redness, swelling, excessive pain, drainage (light blood or clear fluid is normal) or heat Care Plan Goals: Return to baseline health and gradual return to activity following recovery period. Health Concerns: acute cholecystitis s/p lap CCY Plan of Treatment: s/p lap cholecystectomy, discharge to home, f/u in office Assessment: Doing well post op Discharge Date/Time: 04/13/21 11:33
== END 2021-04-13 11:33 | disposition home or self-care (01) | DRG 263 ==
LOC: HO.ED 19:40 → HO.EDOVER 20:34 → HO.S3 04-12 05:41
PROVIDERS: Nurse Practitioner Family; Admitting Provider Surgery; Emergency Provider Emergency Medicine Emergency Medical Services; Visit Provider Surgery
PROC: 0FT44ZZ Resection of Gallbladder, Percutaneous Endoscopic Approach (ICD-10-PCS; CPT 47562; principal; 2021-04-12 12:40)
DX: K80.00 Calculus of gallbladder with acute cholecystitis without obstruction (principal); Z20.822 Contact with and (suspected) exposure to COVID-19
CPT/HCPCS: 47562; 36415; 74177; 80048; 80053; 80076; 81001; 83690; 85025; 85027; 87635; 88304; 96361; 96365; 96375; 99024; 99218; 99285; J1100; J1170; J2270; J2405; J2543; J3010; Q9967

== ENCOUNTER → 2021-04-29 11:31 | Outpatient (BNVA) | payer MEDICAID, SELFPAY | PROVIDERS: Visit Provider Surgery | DX: Z90.49 Acquired absence of other specified parts of digestive tract (principal) | CPT/HCPCS: 99212 ==